=== PATIENT | female | born 1960 | race Caucasian/White ===

== ENCOUNTER → 2022-12-14 | Outpatient (CLI) | payer OTHER | LOC: M ONCR 10:40 | PROVIDERS: ATTEND General Practice | DX: C50.412 Malignant neoplasm of upper-outer quadrant of left female breast (principal) ==

== ENCOUNTER 2022-12-20 13:42 | Outpatient (RCR) | payer OTHER | END 2022-12-23 | LOC: M ONCR 13:42 | PROVIDERS: ATTEND General Practice | DX: C50.412 Malignant neoplasm of upper-outer quadrant of left female breast (principal) ==

== ENCOUNTER 2022-12-30 13:11 | Outpatient (RCR) | payer OTHER | END 2023-01-22 | LOC: M ONCR 13:11 | PROVIDERS: ATTEND General Practice | DX: C50.412 Malignant neoplasm of upper-outer quadrant of left female breast (principal) ==

== ENCOUNTER → 2023-07-04 | Outpatient (CLI) | payer OTHER | LOC: M ONCR 13:06 | PROVIDERS: ATTEND General Practice | DX: C50.412 Malignant neoplasm of upper-outer quadrant of left female breast (principal); Z71.2 Person consulting for explanation of examination or test findings; Z79.811 Long term (current) use of aromatase inhibitors; Z92.3 Personal history of irradiation; Z98.890 Other specified postprocedural states ==

== ENCOUNTER → 2024-07-19 | Outpatient (CLI) | payer OTHER | LOC: M ONCR 12:42 | PROVIDERS: ATTEND General Practice | DX: C50.412 Malignant neoplasm of upper-outer quadrant of left female breast (principal); M25.50 Pain in unspecified joint; Z79.811 Long term (current) use of aromatase inhibitors; Z92.3 Personal history of irradiation ==

== ENCOUNTER → 2024-08-28 | Outpatient (REF) | payer OTHER | LOC: M LAB REF 17:57 | PROVIDERS: ATTEND Otolaryngology | DX: L83 Acanthosis nigricans (principal) ==

== ENCOUNTER → 2025-07-18 | Outpatient (CLI) | payer OTHER | LOC: M ONCR 12:33 | PROVIDERS: ATTEND General Practice | DX: Z08 Encounter for follow-up examination after completed treatment for malignant neoplasm (principal); Z85.3 Personal history of malignant neoplasm of breast; Z79.811 Long term (current) use of aromatase inhibitors; Z92.3 Personal history of irradiation ==